=== PATIENT | female | born 1995 | race Hispanic/Latino ===

== ENCOUNTER 2018-04-30 12:08 | Emergency (ER) | payer OTHER ==
[2018-04-30] MEDS ORDERED: KETOROLAC TROMETHAMINE 30MG/ML ONE (13:13)
[2018-04-30] MEDS ORDERED: DEXAMETHASONE SOD PHOSPHATE 10MG/ML 1ML VIAL ONE (13:13)
== END 2018-04-30 13:36 | disposition home or self-care (01) ==
LOC: EDH 12:08
DX: G89.29 Other chronic pain (principal); M54.6 Pain in thoracic spine; Z88.0 Allergy status to penicillin; Z88.8 Allergy status to other drugs, medicaments and biological substances; Z98.890 Other specified postprocedural states
CPT/HCPCS: 96372 ×2; 99284; J1100; J1885

== ENCOUNTER 2018-06-22 14:32 | Emergency (ER) | payer OTHER ==
[2018-06-22] MEDS ORDERED: PREDNISONE 20 MG TABLET ONE (15:55)
[2018-06-22] MEDS ORDERED: DIPHENHYDRAMINE HCL 25 MG CAPSULE ONE (15:55)
[2018-06-22] MEDS ORDERED: GUAIFENESIN SUGAR-FREE 100 MG/5 ML UDCUP ONE (15:55)
[2018-06-22] MEDS ORDERED: ALBUTEROL SULFATE 0.083% 2.5 MG/3 ML INH IH ONE (15:59)
== END 2018-06-22 16:20 | disposition home or self-care (01) ==
LOC: EDH 14:32
DX: J10.1 Influenza due to other identified influenza virus with other respiratory manifestations (principal); Z88.0 Allergy status to penicillin; Z88.6 Allergy status to analgesic agent
CPT/HCPCS: 87804 ×2; 94640; 99284; Q0163

== ENCOUNTER 2018-08-13 20:30 | Observation (INO) | payer OTHER ==
[~2018-08-13] VITALS: Ht 144.8 cm; Wt 43.1 kg
[2018-08-13 22:10] LABS: BASOPHILS % (AUTO) 0.2 % (0.0-5.0); EOSINOPHILS % (AUTO) 0.6 % (0.0-8.0); HEMATOCRIT 34.6 % (36-48); LYMPHOCYTES % (AUTO) 13.4 % (21.0-51.0); MEAN CORPUSCULAR HGB CONC 33.4 g/dL (32.0-36.0); MEAN CORPUSCULAR VOLUME 89.8 fL (79-99); MONOCYTES % (AUTO) 8.9 % (3.0-13.0); NEUTROPHILS % (AUTO) 76.9 % (40.0-77.0); PLATELET COUNT (AUTO) 251 K/uL (130-400); RED BLOOD CELL COUNT(AUTO) 3.86 MIL/uL (4.00-5.50); RED CELL DISTRIBUTION WIDTH 14.2 % (11.0-15.5); WHITE BLOOD COUNT (AUTO) 8.1 K/uL (4.8-10.8)
[2018-08-13 22:16] LABS: CREATININE 0.7 mg/dL (0.5-1.5); POTASSIUM 3.7 mmol/L (3.5-5.1)
[2018-08-13 22:21] LABS: INR 1.05 (0.85-1.15); PARTIAL THROMBOPLASTIN TIME 29.4 SEC (26.3-35.5)
[2018-08-13 22:54] LABS: ALBUMIN 3.4 g/dL (3.5-5.0); BILIRUBIN,DIRECT 0.1 mg/dL (0.0-0.3); BILIRUBIN,TOTAL 0.4 mg/dL (0.2-1.0); TOTAL PROTEIN, SERUM 7.2 g/dL (6.0-8.3)
[2018-08-13] MEDS ORDERED: IOHEXOL-350 75 ML VIAL IV ONE (23:12)
[2018-08-13 23:58] LABS: BILIRUBIN,URINE Negative (NEGATIVE); COLOR,URINE Yellow (YELLOW); GLUCOSE, URINE (UA) Negative (NEGATIVE); KETONES,URINE Negative (NEGATIVE); LEUKOCYTE ESTERASE ,URINE Negative (NEGATIVE); NITRATE,URINE Negative (NEGATIVE); OCCULT BLOOD,URINE Moderate (NEGATIVE); PROTEIN,URINE Negative (NEGATIVE); UROBILINOGEN,URINE 0.2 mg/dL (0.2-1.0)
[2018-08-14] VITALS (23 sets, daily range): BP systolic 94–153; BP diastolic 56–86
[2018-08-14 00:02] LABS: APPEARANCE,URINE CLEAR (CLEAR)
[2018-08-14 00:05] LABS: AMPHET/METH SCREEN,URINE NEGATIVE (NEGATIVE); BARBITURATE SCREEN, URINE NEGATIVE (NEGATIVE); BENZODIAZEPINES SCREEN,URINE NEGATIVE (NEGATIVE); CANNABINOID SCREEN,URINE NEGATIVE (NEGATIVE); COCAINE SCREEN,URINE NEGATIVE (NEGATIVE); OPIATE SCREEN,URINE NEGATIVE (NEGATIVE); PHENCYCLIDINE SCREEN,URINE NEGATIVE (NEGATIVE)
[2018-08-14 00:14] LABS: BACTERIA,URINE None Seen /HPF (None Seen); MUCUS,URINE None Seen LPF (None Seen); SQUAMOUS EPITHELIAL CELL,UR None Seen /HPF (0-2); WBC,URINE None Seen /HPF (0-1)
[2018-08-14] MEDS ORDERED: MORPHINE SULFATE 4 MG/1ML SYG ONE (00:58)
[2018-08-14] MEDS ORDERED: KETOROLAC TROMETHAMINE 30MG/ML ONE (00:58)
[2018-08-14] MEDS ORDERED: MEROPENEM 1 GM VIAL ONE (00:58)
[2018-08-14] MEDS ORDERED: SODIUM CHLORIDE 0.9% 100 ML IV ONE (01:01)
--- NOTE | 2018-08-14 02:45 | NUR ---
PT. RECEIVED FROM ER; NO DISTRESS NOTED. PT. REFUSED TO SIGN CONSENT ORDERED BY DR KEEN; SAID SHE WOULD TALK TO MD FIRST BEFORE SIGNING THE CONSENT.
[2018-08-14] MEDS ORDERED: EXCEES PO (03:45)
[2018-08-14] MEDS ORDERED: GENTAMICIN SULFATE 120 MG in SODIUM CHLORIDE 0.9% 100 ML IV SCH ×2 (04:15→07:00)
[2018-08-14] MEDS: SODIUM CHLORIDE 0.9% 1000ML 1,000 ML IV SCH ×3 (06:35→19:54)
[2018-08-14 07:57] LABS: HEMATOCRIT 29.8 % (36-48); MEAN CORPUSCULAR HEMOGLOBIN 29.8 pg (27.0-33.0); MEAN CORPUSCULAR HGB CONC 32.8 g/dL (32.0-36.0); MEAN CORPUSCULAR VOLUME 90.8 fL (79-99); PLATELET COUNT (AUTO) 250 K/uL (130-400); RED BLOOD CELL COUNT(AUTO) 3.28 MIL/uL (4.00-5.50); RED CELL DISTRIBUTION WIDTH 14.6 % (11.0-15.5)
[2018-08-14] MEDS: MEPERIDINE-PF 50 MG/ML SYG IM PRN ×3 (08:12→22:00)
[2018-08-14] MEDS: PROMETHAZINE HCL 25 MG/ML 1ML AMPULE IM PRN ×3 (08:12→21:59)
--- NOTE | 2018-08-14 08:30 | NUR ---
MD DR. KEEN ROUNDING ON PATIENT. POC DISCUSSED. DIAGNOSTIC LAPAROSCOPY DISCUSSED WITH PATIENT. QUESTIONS INVITED AND ANSWERED. PATIENT STATES SHE WANTS TIME TO DECIDE ON WHAT SHE WANTS TO DO.
[2018-08-14] MEDS: CLINDAMYCIN 900 MG/D5% WATER 50 ML IV SCH ×2 (10:17→17:35)
--- NOTE | 2018-08-14 13:55 | NUR ---
DISCHARGE PATIENT LEFT UNIT VIA WHEELCHAIR WITH BELONGINGS IN HAND. PERSONAL VEHICLE USED FOR TRANSPORTATION. NO COMPLAINTS OR CONCERNS ADDRESSED FROM PATIENT ON DISCHARGE. Addendum: 08/14/18 at 1655 by MILAGROS NIETO LVN LVN ERROR NOTE ENTERED UNDER WRONG PATIENT
[2018-08-14] MEDS ORDERED: GENTAMICIN 80 MG/NS 100 ML PB 100 ML IV SCH (15:00)
--- NOTE | 2018-08-14 16:00 | NUR ---
MD DR. KEEN IN ROOM WITH PATIENT DISCUSSING PROCEDURE. QUESTIONS ANSWERED. PATIENT VERBALIZED UNDERSTANDING. SIGNIFICANT OTHER AT BEDSIDE.
--- NOTE | 2018-08-14 16:32 | NUR ---
ERROR NOTE ENTERED UNDER WRONG PATIENT.
--- NOTE | 2018-08-14 16:50 | NUR ---
PROCEDURE PATIENT LEFT UNIT VIA BED TO PROCEDURE. PATIENT IN STABLE CONDITION.
[2018-08-14] MEDS ORDERED: LIDOCAINE PF 2% 5ML ABBOJECT ONE (17:04)
[2018-08-14] MEDS ORDERED: FENTANYL CITRATE PF 50 MCG/1 ML 2ML VIAL ONE (17:04)
[2018-08-14] MEDS ORDERED: ROCURONIUM 10MG/1ML SYR 10 MG/ML ML ONE (17:04)
[2018-08-14] MEDS ORDERED: SUCCINYLCHOLINE 200MG/10ML SYR ONE (17:04)
[2018-08-14] MEDS ORDERED: PROPOFOL 10 MG/ML 20ML VIAL IV ONE (17:04)
[2018-08-14] MEDS ORDERED: EPHEDRINE SULFATE 50 MG/ML AMPULE ONE (17:21)
[2018-08-14] MEDS ORDERED: BUPIVACAINE/PF 0.25% 30ML VIAL IJ ONE (17:30)
[2018-08-14] MEDS ORDERED: NEOSTIGMINE 5MG/5ML SYR IV ONE (18:11)
[2018-08-14] MEDS ORDERED: GLYCOPYRROLATE 1 MG/5 ML SYRINGE ONE (18:11)
[2018-08-14] MEDS ORDERED: ONDANSETRON HCL 4 MG/2 ML VIAL ONE (18:14)
--- NOTE | 2018-08-14 18:35 | NUR ---
MD DR. KEEN IN ROOM WITH FAMILY TO DISCUSS PROCEDURE. PATIENT OKAY FOR DISCHARGE TONIGHT IF PATIENT WISHES.
[2018-08-14] MEDS ORDERED: CALDOLOR 800MG+NS 250ML 250 ML IV ONE (18:42)
--- NOTE | 2018-08-14 19:30 | NUR ---
Received patient from Recovery (PACU): Patient came in via bed from PACU accompanied by Brennan RN. Patient and Family informed plan of care. SCD's to both lower extremities applied. New bag of NS hung regulated at 125 ml/hour. Abdomen soft with 3 small incisions with derma turk. At 1999 patient assisted to get up to the bathroom and void, with Blood streak brownish cloudy urine.
--- NOTE | 2018-08-14 23:30 | NUR ---
Patient: Patient refused to have her SCD'S on was taken off per request.
[2018-08-15] MEDS: SODIUM CHLORIDE 0.9% 1000ML 1,000 ML IV SCH (02:58)
[2018-08-15 03:02] VITALS: BP 107/57
[2018-08-15] MEDS: PROMETHAZINE HCL 25 MG/ML 1ML AMPULE IM PRN (03:11)
[2018-08-15] MEDS: MEPERIDINE-PF 50 MG/ML SYG IM PRN (03:11)
[2018-08-15] MEDS ORDERED: IBUP-2077 PO ×2 (05:40→05:43)
[2018-08-15] MEDS ORDERED: DOCU-116 PO ×2 (05:44→05:45)
[2018-08-15] MEDS ORDERED: TYL3 PO ×2 (05:48→05:51)
--- NOTE | 2018-08-15 06:45 | NUR ---
Discharges Instruction: Discharges Instruction given to patient she was very sleepy closing her eyes I keep waking up. Mother of patient given the instruction and verbalizes understanding. Prescription given patient signed that she recived the prescription given to Mom.
[2018-08-15 07:26] VITALS: BP 91/57
--- NOTE | 2018-08-15 07:55 | NUR ---
MD LIU ROUNDING ON PATIENT. DISCHARGE POC DISCUSSED. PATIENT VERBALIZED UNDERSTANDING.
--- NOTE | 2018-08-15 08:45 | NUR ---
DISCHARGE PATIENT LEFT UNIT VIA WHEELCHAIR WITH BELONGINGS IN HAND ACCOMPANIED BY SIGNIFICANT OTHER. PERSONAL VEHICLE USED FOR TRANSPORTATION. NO COMPLAINTS OR CONCERNS ADDRESSED FROM PATIENT ON DISCHARGE.
== END 2018-08-15 08:45 | disposition home or self-care (01) ==
LOC: EDH 20:30 → EDHIP 08-14 00:55 → WSH 08-14 02:45
PROVIDERS: ADMIT Obstetrics & Gynecology; ATTEND Obstetrics & Gynecology
DX: N83.10 Corpus luteum cyst of ovary, unspecified side (principal); R10.2 Pelvic and perineal pain; K66.1 Hemoperitoneum; Z88.0 Allergy status to penicillin; Z88.8 Allergy status to other drugs, medicaments and biological substances; Z79.899 Other long term (current) drug therapy
CPT/HCPCS: 36415 ×2; 49322; 74177; 76856; 80048; 80076; 80305; 81001; 83690; 84702; 85025; 85027; 85610; 85730; 86850; 86900; 86901; 87040 ×2; 96365; 96366; 96367; 96372 ×4; 96375; 99284; A4351; A4930; C1769 ×4; G0168; G0378 ×32; J0330; J1580 ×3; J1741; J1885; J2001; J2175 ×4; J2185; J2270; J2405; J2550 ×4; J2704; J2710; J3010; J3490 ×5; J7030 ×3; Q9967; 96376

== ENCOUNTER 2018-08-16 21:35 | Emergency (ER) | payer OTHER ==
[~2018-08-16 21:35] MED LIST: DOCU-116 PO; EXCEES PO; IBUP-2077 PO; TYL3 PO
[2018-08-16] MEDS ORDERED: KETOROLAC TROMETHAMINE 30MG/ML ONE (22:33)
[2018-08-16] MEDS ORDERED: ONDANSETRON HCL 4 MG/2 ML VIAL ONE (22:33)
[2018-08-16] MEDS ORDERED: SODIUM CHLORIDE 0.9% 1000ML 1,000 ML IV ONE (22:33)
[2018-08-16 22:37] LABS: APPEARANCE,URINE Clear (CLEAR); BILIRUBIN,URINE Negative (NEGATIVE); COLOR,URINE Yellow (YELLOW); GLUCOSE, URINE (UA) Negative (NEGATIVE); KETONES,URINE 15 mg/dL (NEGATIVE); LEUKOCYTE ESTERASE ,URINE Negative (NEGATIVE); NITRATE,URINE Negative (NEGATIVE); OCCULT BLOOD,URINE Small (NEGATIVE); PH,URINE 8.5 (5.0-8.0); PROTEIN,URINE Negative (NEGATIVE); UROBILINOGEN,URINE 0.2 mg/dL (0.2-1.0)
[2018-08-16 22:40] LABS: BASOPHILS % (AUTO) 0.4 % (0.0-5.0); EOSINOPHILS % (AUTO) 0.2 % (0.0-8.0); HEMATOCRIT 26.9 % (36-48); LYMPHOCYTES % (AUTO) 13.7 % (21.0-51.0); MEAN CORPUSCULAR HGB CONC 33.3 g/dL (32.0-36.0); MEAN CORPUSCULAR VOLUME 90.3 fL (79-99); NEUTROPHILS % (AUTO) 80.7 % (40.0-77.0); PLATELET COUNT (AUTO) 235 K/uL (130-400); RED BLOOD CELL COUNT(AUTO) 2.98 MIL/uL (4.00-5.50); RED CELL DISTRIBUTION WIDTH 14.4 % (11.0-15.5); WHITE BLOOD COUNT (AUTO) 7.6 K/uL (4.8-10.8)
[2018-08-16 22:42] LABS: CREATININE 0.7 mg/dL (0.5-1.5); POTASSIUM 3.9 mmol/L (3.5-5.1)
[2018-08-16 22:43] LABS: HCG,QUAL RESULT NEGATIVE (NEGATIVE)
[2018-08-16 22:46] LABS: BACTERIA,URINE Few /HPF (None Seen); SQUAMOUS EPITHELIAL CELL,UR 0-2 /HPF (0-2); WBC,URINE 0-1 /HPF (0-1)
== END 2018-08-17 00:51 | disposition home or self-care (01) ==
LOC: EDH 21:35
DX: E86.0 Dehydration (principal); D64.9 Anemia, unspecified; R51 Headache; Z88.1 Allergy status to other antibiotic agents; Z88.0 Allergy status to penicillin; Z88.8 Allergy status to other drugs, medicaments and biological substances; Z91.048 Other nonmedicinal substance allergy status
CPT/HCPCS: 36415; 80048; 81001; 81025; 85025; 96361; 96374; 96375; 99283; J1885; J2405; J7030